=== PATIENT | female | born 1980 | race African-American/Black ===

== ENCOUNTER 2016-11-06 11:03 | Day surgery (SDC) | payer OTHER ==
[~2016-11-06] VITALS: Ht 167.6 cm; Wt 79.8 kg
[~2016-11-06 11:03] MED LIST: GLUCOSAMINE CO1 EAC3 PO; MOTRIN800 MG PO; MULTIVITAMIN1 EAC2 PO; NOHOMEMEDS; PENNSAID2 GM TP; RANITIDINE HCL150 MG PO; VENTOLIN HFA18 GM IH
[2016-11-06 11:24] VITALS: BP 138/87
[2016-11-06 11:32] LABS: HEMATOCRIT 38.2 % (36.0-46.0); MCH 23.7 PG (29.0-34.0); MCHC 31.9 G/DL (30.0-36.0); MCV 74.2 FL (83-99); MEAN PLAT.VOLUME 9.2 uM^3 (9.5-12.4); PLATELET COUNT 379 K/uL (156-360); RBC DIS.WIDTH-SD 39.6 % (39-53); RED BLOOD COUNT 5.15 M/uL (3.80-5.20); WHITE BLOOD COUNT 4.8 K/uL (4.1-10.2)
[2016-11-06 16:03] VITALS: BP 185/93
[2016-11-06 16:18] VITALS: BP 161/101
[2016-11-06 17:06] VITALS: BP 153/93
[2016-11-06 17:25] VITALS: BP 140/88
== END 2016-11-06 17:44 | disposition home or self-care (01) ==
LOC: SDC 11:03
PROVIDERS: Orthopaedic Surgery Sports Medicine
PROC: 0SBC4ZX Excision of Right Knee Joint, Percutaneous Endoscopic Approach, Diagnostic (ICD-10-PCS; principal; 2016-11-06)
DX: M67.52 Plica syndrome, left knee (principal); M67.51 Plica syndrome, right knee; M17.0 Bilateral primary osteoarthritis of knee; Z87.891 Personal history of nicotine dependence; Z83.3 Family history of diabetes mellitus
CPT/HCPCS: 84702; 85027; J0171; J1100; J1170; J1885; J2250; J2405; J3010

== ENCOUNTER 2016-12-18 10:37 | Day surgery (SDC) | payer OTHER ==
[~2016-12-18] VITALS: Ht 167.6 cm; Wt 80.9 kg
[2016-12-18 11:08] VITALS: BP 152/92
[2016-12-18 15:45] VITALS: BP 170/105
[2016-12-18 16:45] VITALS: BP 165/101
== END 2016-12-18 17:15 | disposition home or self-care (01) ==
LOC: SDC 10:37
DX: M17.12 Unilateral primary osteoarthritis, left knee (principal); M67.52 Plica syndrome, left knee; M23.42 Loose body in knee, left knee; M22.41 Chondromalacia patellae, right knee; Z87.891 Personal history of nicotine dependence; K21.9 Gastro-esophageal reflux disease without esophagitis
CPT/HCPCS: J0131; J0171; J1170; J2250; J3010